=== PATIENT | male | born 1970 | race Two or more races ===

== ENCOUNTER 2018-12-25 02:42 | Emergency (ER) | payer OTHER ==
[~2018-12-25] VITALS: Ht 182.9 cm; Wt 154.2 kg
[2018-12-25 03:46] LABS: Hematocrit 43.2 % (41.0-53.0); Hemoglobin 14.7 g/dL (13.5-17.5); Mean Corpuscular Hemoglobin 28.6 pg (28.0-32.0); Mean Corpuscular Hgb Conc. 34.1 g/dL (32.0-36.0); Mean Corpuscular Volume 83.7 fL (80.0-100.0); Platelet Count (auto) 219 10^3/uL (140-450); Red Blood Cells 5.16 10^6/uL (4.5-5.90); Red Cell Distribution Width 12.8 % (11.8-14.3); White Blood Cell 7.5 10^3/uL (4.4-10.8)
[2018-12-25 03:54] LABS: Band Neutrophils % (manual) 0; Basophils % (manual) 0 (0.0-2.0); Blast Cells 0; Metamyelocytes % 0; Myelocytes % 0; Promyelocytes % 0; Reactive Lymphocytes 0
[2018-12-25 04:01] LABS: INR < 0.93 (0.9-1.15); Partial Thromboplastin Time 27.1 sec (23.64-32.05)
[2018-12-25 04:05] LABS: Alanine Aminotransferase 49 U/L (16-61); Anion Gap 8 (5-15); Aspartate Aminotransferase 36 U/L (15-37); BUN/Creatinine Ratio 20.2; Blood Urea Nitrogen 20 mg/dL (7-18); Calcium 8.8 mg/dL (8.5-10.1); Carbon Dioxide 24 mmol/L (21-32); Chloride 109 mmol/L (98-107); GFR African American 103 mL/min; GFR Non-African American 85 mL/min; Glucose 100 mg/dL (74-106); Potassium 3.8 mmol/L (3.5-5.1); Sodium 141 mmol/L (136-145)
[2018-12-25] MEDS ORDERED: SODIUM CHLORIDE 0.9% 1,000 ML IV ONE (05:00)
[2018-12-25] MEDS ORDERED: IPRATROPIUM BROM 0.5 MG/2.5ML INH SOL NEB ONE (05:00)
[2018-12-25] MEDS ORDERED: ALBUTEROL SULF 2.5 MG/0.5ML(0.5%) NEB SOLN NEB ONE ×2 (05:00→07:45)
[2018-12-25] MEDS ORDERED: methylPREDNISolone SOD SUCC 125 MG/2 ML VL IV ONE (05:00)
[2018-12-25 05:06] LABS: Albumin 3.9 g/dL (3.4-5.0); Alkaline Phosphatase 76 U/L (45-117); Bilirubin, Total 0.4 mg/dL (0.2-1.0); Total Protein 7.1 g/dL (6.4-8.2)
[2018-12-25 06:07] LABS: Eosinophils % (manual) 10 (0-7); Lymphocytes % (manual) 20 (10.0-50.0); Monocytes % (manual) 1 (0-12)
[2018-12-25 09:02] VITALS: BP 154/85
== END 2018-12-25 09:16 | disposition short-term general hospital (02) ==
LOC: EDBD 02:42 → ER 02:48
DX: J45.41 Moderate persistent asthma with (acute) exacerbation (principal); J45.42 Moderate persistent asthma with status asthmaticus; J01.00 Acute maxillary sinusitis, unspecified; I10 Essential (primary) hypertension
CPT/HCPCS: 36415; 71045; 80053; 83880; 84484; 85007; 85027; 85379; 85610; 85730; 93005; 94640; 94761; 96374; 99285; J2930; J7030; J7611; J7644; 94644